=== PATIENT | female | born 1975 | race Caucasian/White ===

== ENCOUNTER → 2017-03-13 | Outpatient (CLI) | payer OTHER ==
[2017-03-13 07:19] LABS: BASOPHILS # (AUTO) 0.03 x10^3/uL (0-0.1); BASOPHILS % (AUTO) 1 % (0-1); EOSINOPHILS # (AUTO) 0.14 x10^3/uL (0-0.4); EOSINOPHILS % (AUTO) 2 % (1-7); LYMPHOCYTES # (AUTO) 1.99 x10^3/uL (1-3.4); LYMPHOCYTES % (AUTO) 32 % (22-44); MD NO; MEAN CORPUSCULAR HEMOGLOBIN 30.4 pg (27.0-34.8); MEAN CORPUSCULAR HGB CONC 34.1 g/dL (32.4-35.8); MEAN PLATELET VOLUME 7.4 fL (7.4-10.4); MONOCYTES # (AUTO) 0.51 x10^3/uL (0.2-0.8); MONOCYTES % (AUTO) 8 % (2-9); NEUTROPHILS # (AUTO) 3.62 x10^3/uL (1.8-6.8); NEUTROPHILS % (AUTO) 58 % (42-75); PLATELET COUNT 262 x10^3/uL (130-400); RED BLOOD COUNT 4.93 x10^6/uL (3.82-5.3); RED CELL DISTRIBUTION WIDTH 12.5 % (9.6-15.2)
[2017-03-13 07:29] LABS: ALBUMIN 3.5 g/dL (3.4-5.0); ANION GAP 8 mmol/L (5-15); CALCIUM 8.6 mg/dL (8.5-10.1); CHLORIDE 107 mmol/L (98-107)
[2017-03-13 07:38] LABS: ALANINE AMINOTRANSFERASE 27 U/L (12-78); ALKALINE PHOSPHATASE 56 U/L (45-117); BILIRUBIN,TOTAL 0.8 mg/dL (0.2-1.0); CHOLESTEROL, TOTAL 186 mg/dL (140-239); CREATININE 0.87 mg/dL (0.55-1.02); FREE T4 (FREE THYROXINE) 1.01 ng/dL (0.76-1.46); HDL CHOL % 25 % (28-40); HDL CHOLESTEROL (DIRECT) 47 mg/dL (40-60); LDL CHOLESTEROL,CALCULATED 111 mg/dL (54-169); LDL/HDL RATIO 2.4 (0.5-3.0); TOTAL PROTEIN 7.2 g/dL (6.4-8.2); TRIGLYCERIDES 139 mg/dL (50-200); VLDL CHOLESTEROL 28 mg/dL (0-25)
== END | disposition home or self-care (01) ==
LOC: LAB 07:04
PROVIDERS: ATTEND Family Medicine
DX: R10.9 Unspecified abdominal pain (principal); Z00.00 Encounter for general adult medical examination without abnormal findings
CPT/HCPCS: 36415; 80053; 80061; 82150; 82306; 83690; 84439; 84443; 85025

== ENCOUNTER → 2017-07-17 | Outpatient (CLI) | payer OTHER | END | disposition home or self-care (01) | LOC: CFH 11:37 | PROVIDERS: ATTEND Family Medicine | DX: Z12.31 Encounter for screening mammogram for malignant neoplasm of breast (principal); N64.89 Other specified disorders of breast | CPT/HCPCS: 77063; 77067 ==

== ENCOUNTER → 2017-07-31 | Outpatient (CLI) | payer OTHER | END | disposition home or self-care (01) | LOC: CFH 14:44 | PROVIDERS: ATTEND Family Medicine | DX: N63.21 Unspecified lump in the left breast, upper outer quadrant (principal); Z80.3 Family history of malignant neoplasm of breast | CPT/HCPCS: 77065 ==

== ENCOUNTER → 2017-08-15 | Outpatient (CLI) | payer OTHER ==
[~2017-08-15] MED LIST: LIDOCAINE 1%, 20ML ONE; LIDOCAINE 1%-EPI 1:100K, 50ML ONE; SODIUM BICARBONATE 4.2%, 5ML ONE
== END ==
LOC: CFH 14:58
PROVIDERS: ATTEND Family Medicine
DX: N63.21 Unspecified lump in the left breast, upper outer quadrant (principal)
CPT/HCPCS: 19083; 77065; 88305; J3490

== ENCOUNTER 2017-08-22 01:20 | Emergency (ER) | payer OTHER ==
[~2017-08-22] VITALS: Ht 170.2 cm; Wt 115.0 kg
[2017-08-22] MEDS ORDERED: ALBUTEROL/IPRATROPIUM 2.5MG/0.5MG, 3 ML NPPB PRN (02:00)
[2017-08-22 02:16] LABS: BASOPHILS % (AUTO) 1 % (0-1); EOSINOPHILS # (AUTO) 0.27 x10^3/uL (0-0.4); EOSINOPHILS % (AUTO) 3 % (1-7); LYMPHOCYTES # (AUTO) 2.18 x10^3/uL (1-3.4); LYMPHOCYTES % (AUTO) 22 % (22-44); MD NO; MEAN CORPUSCULAR HEMOGLOBIN 30.6 pg (27.0-34.8); MEAN CORPUSCULAR HGB CONC 34.2 g/dL (32.4-35.8); MEAN CORPUSCULAR VOLUME 89.5 fL (80-100); MEAN PLATELET VOLUME 8.1 fL (7.4-10.4); MONOCYTES # (AUTO) 0.69 x10^3/uL (0.2-0.8); MONOCYTES % (AUTO) 7 % (2-9); NEUTROPHILS # (AUTO) 6.85 x10^3/uL (1.8-6.8); NEUTROPHILS % (AUTO) 68 % (42-75); PLATELET COUNT 235 x10^3/uL (130-400); RED CELL DISTRIBUTION WIDTH 12.6 % (9.6-15.2)
[2017-08-22 02:18] LABS: ALBUMIN 3.8 g/dL (3.4-5.0); ANION GAP 7 mmol/L (5-15); CHLORIDE 108 mmol/L (98-107); CREATININE 0.82 mg/dL (0.55-1.02)
[2017-08-22 02:21] LABS: TROPONIN I < 0.015 ng/mL (0.000-0.045)
[2017-08-22] MEDS ORDERED: MAALOX/HYOSCYAMINE/LIDOCAINE 45 ML BTL PO ONE (02:30)
[2017-08-22] MEDS ORDERED: MAALOX/HYOSCYAMINE/LIDOCAINE 45 ML BTL ONE (02:57)
[2017-08-22 03:23] LABS: ALANINE AMINOTRANSFERASE 22 U/L (12-78); ALBUMIN 3.6 g/dL (3.4-5.0); ALKALINE PHOSPHATASE 57 U/L (45-117); BILIRUBIN,TOTAL 0.3 mg/dL (0.2-1.0); TOTAL PROTEIN 7.4 g/dL (6.4-8.2)
[2017-08-22 03:26] LABS: BILIRUBIN, DIRECT < 0.1 mg/dL (0.1-0.2); BILIRUBIN,INDIRECT 0.2 mg/dL (0.0-2.0)
[2017-08-22 04:12] VITALS: BP 130/71
[2017-08-23] MEDS ORDERED: FEXO1TAB29 PO (14:11)
[2017-08-23] MEDS ORDERED: IBUP200C8 PO (14:11)
[2017-08-23] MEDS ORDERED: CYCL5TAB PO (14:11)
[2017-08-23] MEDS ORDERED: FLUT9.9S NAS (14:11)
== END 2017-08-22 04:15 | disposition home or self-care (01) ==
LOC: ED 04:12
DX: R07.89 Other chest pain (principal); J45.909 Unspecified asthma, uncomplicated
CPT/HCPCS: 36415; 71046; 80048; 80076; 82040; 83690; 83880; 84484; 85025; 93005; 94640; 99285; J7620

== ENCOUNTER 2017-08-23 11:31 | Observation (INO) | payer OTHER ==
[~2017-08-23] VITALS: Ht 170.2 cm; Wt 116.5 kg
[2017-08-23] MEDS ORDERED: NITROGLYCERIN OINT 2%, 1GM TP ONE ×2 (12:25→12:30)
[2017-08-23] MEDS ORDERED: HYDROcodone/APAP 5/325 TABLET ONE (12:25)
[2017-08-23] MEDS ORDERED: HYDROcodone/APAP 5/325 TABLET PO ONE (12:30)
[2017-08-23 12:41] LABS: ALBUMIN 3.8 g/dL (3.4-5.0); ANION GAP 7 mmol/L (5-15); CALCIUM 8.9 mg/dL (8.5-10.1); CHLORIDE 108 mmol/L (98-107); CREATININE 0.78 mg/dL (0.55-1.02)
[2017-08-23 12:45] LABS: TROPONIN I < 0.015 ng/mL (0.000-0.045)
[2017-08-23 12:52] LABS: BASOPHILS # (AUTO) 0.02 x10^3/uL (0-0.1); BASOPHILS % (AUTO) 0 % (0-1); EOSINOPHILS # (AUTO) 0.13 x10^3/uL (0-0.4); EOSINOPHILS % (AUTO) 2 % (1-7); LYMPHOCYTES # (AUTO) 1.21 x10^3/uL (1-3.4); LYMPHOCYTES % (AUTO) 18 % (22-44); MD NO; MEAN CORPUSCULAR HEMOGLOBIN 30.5 pg (27.0-34.8); MEAN CORPUSCULAR HGB CONC 34.3 g/dL (32.4-35.8); MEAN PLATELET VOLUME 7.9 fL (7.4-10.4); MONOCYTES # (AUTO) 0.49 x10^3/uL (0.2-0.8); MONOCYTES % (AUTO) 7 % (2-9); NEUTROPHILS # (AUTO) 4.86 x10^3/uL (1.8-6.8); NEUTROPHILS % (AUTO) 72 % (42-75); PLATELET COUNT 223 x10^3/uL (130-400); RED BLOOD COUNT 4.57 x10^6/uL (3.82-5.3); RED CELL DISTRIBUTION WIDTH 12.5 % (9.6-15.2)
[2017-08-23] MEDS ORDERED: OMNIPAQUE 350 MG/ML, 100ML BOTTLE ONE (13:37)
[2017-08-23] MEDS ORDERED: CYCL5TAB PO (14:11)
[2017-08-23] MEDS ORDERED: FLUT9.9S NAS (14:11)
[2017-08-23] MEDS ORDERED: FEXO1TAB29 PO (14:11)
[2017-08-23] MEDS ORDERED: IBUP200C8 PO (14:11)
[2017-08-23] MEDS ORDERED: ONDANSETRON ODT 4 MG PO PRN (15:00)
[2017-08-23] MEDS ORDERED: ONDANSETRON 2MG/ML, 2ML IVPush PRN (15:00)
[2017-08-23] MEDS ORDERED: LABETALOL 5MG/ML, 20ML IVPush PRN (15:00)
[2017-08-23] MEDS ORDERED: LORATADINE/PSE 5/120MG TAB.ER.12H PO PRN (15:00)
[2017-08-23] MEDS ORDERED: ENALAPRILAT 1.25 MG/ML, 2ML IVPush PRN (15:00)
[2017-08-23 15:44] VITALS: BP 122/83
[2017-08-23] MEDS: ACETAMINOPHEN 325 MG TABLET PO PRN (18:10)
[2017-08-23 18:23] LABS: TROPONIN I < 0.015 ng/mL (0.000-0.045)
[2017-08-23 19:22] VITALS: BP 129/84
[2017-08-23 19:58] VITALS: BP 122/68
[2017-08-23] MEDS ORDERED: NITROGLYCERIN 0.4 MG BOTTLE (25 TABS) SL PRN (20:00)
[2017-08-23] MEDS ORDERED: NITROGLYCERIN 0.4 MG/SPRAY SL PRN (20:00)
[2017-08-24 00:46] LABS: TROPONIN I < 0.015 ng/mL (0.000-0.045)
[2017-08-24 01:38] VITALS: BP 127/83
[2017-08-24] MEDS: ACETAMINOPHEN 325 MG TABLET PO PRN (05:16)
[2017-08-24 05:23] LABS: BASOPHILS # (AUTO) 0.03 x10^3/uL (0-0.1); BASOPHILS % (AUTO) 0 % (0-1); EOSINOPHILS # (AUTO) 0.16 x10^3/uL (0-0.4); EOSINOPHILS % (AUTO) 3 % (1-7); LYMPHOCYTES # (AUTO) 1.87 x10^3/uL (1-3.4); LYMPHOCYTES % (AUTO) 28 % (22-44); MD NO; MEAN CORPUSCULAR HEMOGLOBIN 30.6 pg (27.0-34.8); MEAN CORPUSCULAR HGB CONC 34.4 g/dL (32.4-35.8); MEAN CORPUSCULAR VOLUME 89.1 fL (80-100); MONOCYTES # (AUTO) 0.67 x10^3/uL (0.2-0.8); MONOCYTES % (AUTO) 10 % (2-9); NEUTROPHILS # (AUTO) 3.85 x10^3/uL (1.8-6.8); NEUTROPHILS % (AUTO) 59 % (42-75); PLATELET COUNT 210 x10^3/uL (130-400); RED CELL DISTRIBUTION WIDTH 12.7 % (9.6-15.2)
[2017-08-24 05:24] LABS: ANION GAP 7 mmol/L (5-15); CALCIUM 8.5 mg/dL (8.5-10.1); CHLORIDE 107 mmol/L (98-107)
[2017-08-24 05:35] LABS: CHOL/HDL RATIO 3.9; CHOLESTEROL, TOTAL 183 mg/dL (140-239); CREATININE 0.77 mg/dL (0.55-1.02); HDL CHOL % 26 % (28-40); HDL CHOLESTEROL (DIRECT) 47 mg/dL (40-60); LDL CHOLESTEROL,CALCULATED 117 mg/dL (54-169); LDL/HDL RATIO 2.5 (0.5-3.0); TRIGLYCERIDES 94 mg/dL (50-200); VLDL CHOLESTEROL 19 mg/dL (0-25)
[2017-08-24 05:36] LABS: THYROID STIMULATING HORMONE 0.982 mIU/L (0.358-3.740)
[2017-08-24 07:42] VITALS: BP 116/75
[2017-08-24] MEDS ORDERED: SENNA/DOCUSATE TABLET PO SCH (09:00)
[2017-08-24] MEDS ORDERED: FLUTICASONE NASAL SPRAY 16GM NAS SCH (09:00)
[2017-08-24] MEDS ORDERED: OMEP-110 PO (12:01)
== END 2017-08-24 14:37 | disposition home or self-care (01) ==
LOC: ED 12:01 → INTOOBSV 14:04 → EDIP 14:04 → 5SO 15:43 → UNDODISIN 08-24 14:37
PROVIDERS: ADMIT Hospitalist; ATTEND Hospitalist
DX: R07.9 Chest pain, unspecified (principal); G89.29 Other chronic pain; M54.5 Low back pain; J44.9 Chronic obstructive pulmonary disease, unspecified; Z82.3 Family history of stroke; Z82.49 Family history of ischemic heart disease and other diseases of the circulatory system; Z82.5 Family history of asthma and other chronic lower respiratory diseases; Z86.72 Personal history of thrombophlebitis; Z87.891 Personal history of nicotine dependence; Z90.710 Acquired absence of both cervix and uterus
CPT/HCPCS: 36415; 71275; 78452; 80048; 80061; 82040; 84443; 84484; 85025; 85379; 93005; 93017; 99285; A9502; C9898; G0378; Q9967

== ENCOUNTER 2017-10-02 10:45 | Day surgery (SDC) | payer OTHER ==
[~2017-10-02] VITALS: Ht 170.2 cm; Wt 113.0 kg
[~2017-10-02 10:45] MED LIST changes: +ACET325T14 PO; +ALBU8.5H8 INH; +CYCL5TAB PO; +FEXO1TAB29 PO; +FLUT9.9S NAS; +IBUP200C8 PO; -LIDOCAINE 1%, 20ML ONE; -LIDOCAINE 1%-EPI 1:100K, 50ML ONE; +OMEP-110 PO; +OMEP20TA62 PO; -SODIUM BICARBONATE 4.2%, 5ML ONE
[2017-10-02] MEDS ORDERED: LACTATED RINGERS 1,000 ML IV SCH ×2 (13:14→18:30)
[2017-10-02 13:21] VITALS: BP 138/92
[2017-10-02] MEDS ORDERED: BUPIVACAINE/PF 0.5% ONE (13:28)
[2017-10-02] MEDS ORDERED: EPINEPHRINE 1 MG/ML, 1ML ONE (13:28)
[2017-10-02] MEDS ORDERED: SCOPOLAMINE PATCH, 1.5MG PATCH.TD72 TD ONE (13:30)
[2017-10-02] MEDS ORDERED: ACETAMINOPHEN 500 MG TABLET PO ONE (13:30)
[2017-10-02] MEDS ORDERED: GABAPENTIN 300 MG CAPSULE PO ONE (13:30)
[2017-10-02] MEDS ORDERED: ONDANSETRON 2MG/ML, 2ML IVPush ONE (13:30)
[2017-10-02] MEDS ORDERED: MIDAZOLAM 1 MG/ML, 2ML ONE (16:46)
[2017-10-02] MEDS ORDERED: FENTANYL PF 250 MCG/5ML ONE (16:46)
[2017-10-02] MEDS ORDERED: PROPOFOL 10 MG/ML, 20ML ONE (16:47)
[2017-10-02] MEDS ORDERED: ONDANSETRON 2MG/ML, 2ML ONE (16:48)
[2017-10-02] MEDS ORDERED: LIDOCAINE GEL 2%, 5ML ONE (16:48)
[2017-10-02] MEDS ORDERED: DEXAMETHASONE 4 MG/ML, 1ML ONE (16:48)
[2017-10-02] MEDS ORDERED: CEFAZOLIN 1,000 MG ONE (16:48)
[2017-10-02] MEDS ORDERED: LORazepam 2 MG/ML, 1ML IVPush PRN (17:30)
[2017-10-02] MEDS ORDERED: OXYcodone 5 MG/5 ML ORAL.SOL UDC PO PRN (17:30)
[2017-10-02] MEDS ORDERED: FENTANYL PF 100 MCG/2ML IV PRN (17:30)
[2017-10-02] MEDS ORDERED: ONDANSETRON 2MG/ML, 2ML IV PRN (17:30)
[2017-10-02] MEDS ORDERED: MEPERIDINE/PF 25MG/0.5ML IVPush PRN (17:30)
[2017-10-02] MEDS ORDERED: ONDANSETRON ODT 8 MG PO PRN (17:30)
[2017-10-02] MEDS ORDERED: ALBUTEROL SULFATE 2.5 MG/3 ML NPPB PRN (17:30)
[2017-10-02] MEDS ORDERED: PROMETHAZINE 25 MG/ML, 1ML IV PRN (17:30)
[2017-10-02] MEDS ORDERED: hydrALAzine 20 MG/ML, 1ML IV PRN (17:30)
[2017-10-02] MEDS ORDERED: MIDAZOLAM 1 MG/ML, 2ML IV PRN (17:30)
[2017-10-02] MEDS ORDERED: HYDROmorphone 1 MG/ML, 1ML IV PRN (17:30)
[2017-10-02] MEDS ORDERED: PROMETHAZINE 12.5 MG SUPP PR PRN (17:30)
[2017-10-02] MEDS ORDERED: LABETALOL 5MG/ML, 20ML IV PRN (17:30)
[2017-10-02] MEDS ORDERED: OXYcodone 5 MG/5 ML ORAL.SOL UDC ONE (18:08)
[2017-10-02] MEDS ORDERED: ONDANSETRON 2MG/ML, 2ML IVPush PRN (18:30)
[2017-10-02] MEDS ORDERED: MORPHINE SULFATE 4 MG/ML, 1ML IVPush PRN (18:30)
== END 2017-10-02 19:45 | disposition home or self-care (01) ==
LOC: SDC 10:45 → EDSTATUS 15:30 → 4NOR 18:22 → OUT 19:45
PROVIDERS: ATTEND Surgery
DX: N60.22 Fibroadenosis of left breast (principal); F41.9 Anxiety disorder, unspecified; K21.9 Gastro-esophageal reflux disease without esophagitis; E66.9 Obesity, unspecified; J44.9 Chronic obstructive pulmonary disease, unspecified; Z79.899 Other long term (current) drug therapy; Z88.1 Allergy status to other antibiotic agents; Z98.890 Other specified postprocedural states; Z88.8 Allergy status to other drugs, medicaments and biological substances; Z87.891 Personal history of nicotine dependence; Z72.89 Other problems related to lifestyle; Z90.710 Acquired absence of both cervix and uterus; Z68.41 Body mass index [BMI] 40.0-44.9, adult
CPT/HCPCS: 19281; 19301; 88305; 88307; J0171; J0690; J1100; J2250; J2405; J2704; J3010; J3490; J7120

== ENCOUNTER → 2018-04-13 | Outpatient (CLI) | payer OTHER | END | disposition home or self-care (01) | LOC: CFH 10:58 | PROVIDERS: ATTEND Surgery | DX: Z08 Encounter for follow-up examination after completed treatment for malignant neoplasm (principal); Z85.3 Personal history of malignant neoplasm of breast | CPT/HCPCS: 77065; G0279 ==

== ENCOUNTER 2018-09-30 08:02 | Outpatient (CLI) | payer OTHER | END 2018-09-30 23:59 | disposition home or self-care (01) | LOC: LAB 08:02 | PROVIDERS: ATTEND Physician Assistant Surgical | DX: M76.31 Iliotibial band syndrome, right leg (principal); M17.11 Unilateral primary osteoarthritis, right knee; M25.561 Pain in right knee | CPT/HCPCS: 36415; 80053; 84550; 85025; 85651; 86140 ==

== ENCOUNTER 2018-10-05 13:00 | Outpatient (CLI) | payer OTHER | END 2018-10-05 23:59 | disposition home or self-care (01) | LOC: CFH 13:00 | PROVIDERS: ATTEND Physician Assistant Surgical | DX: S83.241A Other tear of medial meniscus, current injury, right knee, initial encounter (principal); S83.011A Lateral subluxation of right patella, initial encounter; M25.461 Effusion, right knee; M67.461 Ganglion, right knee; M17.11 Unilateral primary osteoarthritis, right knee; R60.0 Localized edema; X58.XXXA Exposure to other specified factors, initial encounter; Y93.89 Activity, other specified; Y92.89 Other specified places as the place of occurrence of the external cause; Y99.8 Other external cause status ==

== ENCOUNTER 2018-10-07 11:23 | Outpatient (CLI) | payer OTHER | END 2018-10-07 23:59 | disposition home or self-care (01) | LOC: LAB 11:23 | PROVIDERS: ATTEND Orthopaedic Surgery Adult Reconstructive Orthopaedic Surgery | DX: M17.11 Unilateral primary osteoarthritis, right knee (principal) | CPT/HCPCS: 36415; 86038; 86200; 86430 ==

== ENCOUNTER 2019-07-26 15:23 | Outpatient (CLI) | payer OTHER | END 2019-07-26 23:59 | disposition home or self-care (01) | LOC: CFH 15:23 | PROVIDERS: ATTEND Orthopaedic Surgery Adult Reconstructive Orthopaedic Surgery | DX: S83.242A Other tear of medial meniscus, current injury, left knee, initial encounter (principal); M25.462 Effusion, left knee; M25.762 Osteophyte, left knee; M94.28 Chondromalacia, other site; X58.XXXA Exposure to other specified factors, initial encounter; Y93.89 Activity, other specified; Y92.89 Other specified places as the place of occurrence of the external cause; Y99.8 Other external cause status ==

== ENCOUNTER → 2019-08-06 | Outpatient (CLI) | payer OTHER ==
[2019-08-06 08:31] LABS: BASOPHILS # (AUTO) 0.02 x10^3/uL (0-0.1); BASOPHILS % (AUTO) 0 % (0-1); EOSINOPHILS # (AUTO) 0.23 x10^3/uL (0-0.4); EOSINOPHILS % (AUTO) 4 % (1-7); LYMPHOCYTES # (AUTO) 1.61 x10^3/uL (1-3.4); LYMPHOCYTES % (AUTO) 26 % (22-44); MD NO; MEAN CORPUSCULAR HEMOGLOBIN 30.7 pg (27.0-34.8); MEAN CORPUSCULAR VOLUME 90.3 fL (80-100); MEAN PLATELET VOLUME 7.6 fL (7.4-10.4); MONOCYTES # (AUTO) 0.65 x10^3/uL (0.2-0.8); MONOCYTES % (AUTO) 11 % (2-9); NEUTROPHILS # (AUTO) 3.72 x10^3/uL (1.8-6.8); NEUTROPHILS % (AUTO) 60 % (42-75); PLATELET COUNT 230 x10^3/uL (130-400); RED BLOOD COUNT 4.72 x10^6/uL (3.82-5.3); RED CELL DISTRIBUTION WIDTH 12.5 % (9.6-15.2)
[2019-08-06 08:33] LABS: ALANINE AMINOTRANSFERASE 24 U/L (12-78); ALBUMIN 3.6 g/dL (3.4-5.0); ANION GAP 8 mmol/L (5-15); CALCIUM 8.6 mg/dL (8.5-10.1); CHLORIDE 110 mmol/L (98-107); CHOLESTEROL, TOTAL 201 mg/dL (140-239); CREATININE 0.79 mg/dL (0.55-1.02)
[2019-08-06 08:35] LABS: ALKALINE PHOSPHATASE 56 U/L (45-117); BILIRUBIN,TOTAL 0.4 mg/dL (0.2-1.0); HDL CHOL % 20 % (28-40); HDL CHOLESTEROL (DIRECT) 40 mg/dL (40-60); LDL CHOLESTEROL,CALCULATED 133 mg/dL (54-169); LDL/HDL RATIO 3.3 (0.5-3.0); TOTAL PROTEIN 7.1 g/dL (6.4-8.2); TRIGLYCERIDES 138 mg/dL (50-200); VLDL CHOLESTEROL 28 mg/dL (0-25)
== END | disposition home or self-care (01) ==
LOC: LAB 08:10
PROVIDERS: ATTEND Family Medicine
DX: Z00.00 Encounter for general adult medical examination without abnormal findings (principal)
CPT/HCPCS: 36415; 80053; 80061; 85025

== ENCOUNTER → 2019-12-03 | Outpatient (CLI) | payer OTHER ==
[~2019-12-03] MED LIST changes: +ARNUITY INH; +CELEBREX PO; +LORA10TA75 PO
[2019-12-03 16:04] LABS: BASOPHILS % (AUTO) 1 % (0-1); EOSINOPHILS % (AUTO) 3 % (1-7); LYMPHOCYTES % (AUTO) 25 % (22-44); MEAN CORPUSCULAR HEMOGLOBIN 30.2 pg (27.0-34.8); MEAN CORPUSCULAR HGB CONC 34.2 g/dL (32.4-35.8); MEAN PLATELET VOLUME 7.6 fL (7.4-10.4); MONOCYTES % (AUTO) 7 % (2-9); NEUTROPHILS % (AUTO) 64 % (42-75); PLATELET COUNT 278 x10^3/uL (130-400); RED BLOOD COUNT 4.87 x10^6/uL (3.82-5.3); RED CELL DISTRIBUTION WIDTH 12.5 % (9.6-15.2)
[2019-12-03 16:09] LABS: MD NO
[2019-12-03 16:13] LABS: ANION GAP 4 mmol/L (5-15); CHLORIDE 106 mmol/L (98-107); CREATININE 0.83 mg/dL (0.55-1.02)
== END | disposition home or self-care (01) ==
LOC: STAR 15:05
PROVIDERS: ATTEND Orthopaedic Surgery Adult Reconstructive Orthopaedic Surgery
DX: Z01.812 Encounter for preprocedural laboratory examination (principal); Z20.828 Contact with and (suspected) exposure to other viral communicable diseases; M17.12 Unilateral primary osteoarthritis, left knee
CPT/HCPCS: 36415; 80048; 85025; 87081; 87147; 87635

== ENCOUNTER 2019-12-07 05:40 | Observation (INO) | payer OTHER ==
[~2019-12-07] VITALS: Ht 170.2 cm; Wt 127.2 kg
[2019-12-07] MEDS ORDERED: LIDOCAINE-MPF 1%, 2ML INFIL STA (06:11)
[2019-12-07] MEDS ORDERED: LACTATED RINGERS 1,000 ML IV SCH (06:11)
[2019-12-07] MEDS ORDERED: CHLORHEXIDINE 15 ML UDC MM STA (06:11)
[2019-12-07] MEDS ORDERED: PROPOFOL 10 MG/ML, 20ML ONE (06:17)
[2019-12-07] MEDS ORDERED: MIDAZOLAM 1 MG/ML, 2ML ONE (06:17)
[2019-12-07] MEDS ORDERED: ROCURONIUM 10MG/ML,5ML ONE (06:17)
[2019-12-07] MEDS ORDERED: DEXAMETHASONE 4 MG/ML, 1ML ONE (06:17)
[2019-12-07] MEDS ORDERED: SUCCINYLCHOLINE 20 MG/ML, 10ML ONE (06:17)
[2019-12-07] MEDS ORDERED: ONDANSETRON 2MG/ML, 2ML ONE (06:17)
[2019-12-07] MEDS ORDERED: CEFAZOLIN 1,000 MG ONE (06:17)
[2019-12-07] MEDS ORDERED: NEOSTIGMINE 1 MG/ML, 10ML ONE (06:17)
[2019-12-07] MEDS ORDERED: FENTANYL PF 100 MCG/2ML ONE ×3 (06:17→08:29)
[2019-12-07] MEDS ORDERED: GLYCOPYRROLATE 0.2MG/1ML, 5ML ONE (06:17)
[2019-12-07] MEDS ORDERED: BUPIVACAINE/PF 0.5% ONE (06:19)
[2019-12-07] MEDS ORDERED: NEOSPORIN OINT. PKT 1 PACKET ONE (06:20)
[2019-12-07] MEDS ORDERED: TRANEXAMIC ACID 100 MG/ML, 10ML ONE ×2 (06:20)
[2019-12-07] MEDS ORDERED: EPINEPHRINE 1 MG/ML, 1ML ONE (06:20)
[2019-12-07] MEDS ORDERED: SCOPOLAMINE 1MG PATCH TD ONE (06:29)
[2019-12-07] MEDS ORDERED: ACETAMINOPHEN 500 MG TABLET PO STA (06:35)
[2019-12-07] MEDS ORDERED: VANCOMYCIN 1,000 MG ONE (07:11)
[2019-12-07] MEDS ORDERED: HYDROmorphone 1 MG/ML, 1ML INJ IVPush PRN (07:30)
[2019-12-07] MEDS ORDERED: OXYcodone 5 MG/5 ML ORAL.SOL UDC PO PRN (07:30)
[2019-12-07] MEDS ORDERED: PROMETHAZINE 25 MG/ML, 1ML IVPush PRN (07:30)
[2019-12-07] MEDS ORDERED: KETOROLAC 30 MG/1 ML IVPush PRN (07:30)
[2019-12-07] MEDS ORDERED: MEPERIDINE/PF 25MG/ML,1ML ONE ×2 (08:15→08:52)
[2019-12-07] MEDS: MEPERIDINE/PF 25MG/0.5ML IVPush PRN ×2 (08:16→08:55)
[2019-12-07] MEDS ORDERED: OXYcodone 5 MG/5 ML ORAL.SOL UDC ONE (08:30)
[2019-12-07] MEDS: FENTANYL PF 100 MCG/2ML IV PRN ×2 (08:34→09:16)
[2019-12-07] MEDS ORDERED: METHOCARBAMOL 1,000 MG in DEXTROSE 5% 100 ML IV STA (08:51)
[2019-12-07 10:15] VITALS: BP 147/95
[2019-12-07] MEDS ORDERED: MORPHINE SULFATE 4 MG/ML, 1ML ONE (11:41)
[2019-12-07] MEDS ORDERED: ONDANSETRON 2MG/ML, 2ML IVPush PRN (12:00)
[2019-12-07] MEDS ORDERED: ONDANSETRON ODT 4 MG PO PRN (12:00)
[2019-12-07] MEDS ORDERED: MORPHINE SULFATE 4 MG/ML, 1ML IVPush PRN (12:00)
[2019-12-07] MEDS: OXYcodone/APAP 10/325MG TABLET PO PRN ×2 (12:57→17:31)
[2019-12-07 13:10] VITALS: BP 142/90
[2019-12-07 13:16] VITALS: BP 142/85
[2019-12-07] MEDS: CEFAZOLIN PMX 2GM/50ML 50 ML IVPB SCH ×2 (14:59→23:01)
[2019-12-07 17:25] VITALS: BP 131/88
[2019-12-07 19:19] VITALS: BP 113/66
[2019-12-07] MEDS: OXYcodone/APAP 5/325MG TABLET PO PRN (22:22)
[2019-12-07 23:54] VITALS: BP 134/81
[2019-12-08] MEDS: OXYcodone/APAP 10/325MG TABLET PO PRN (02:36)
[2019-12-08 03:34] VITALS: BP 132/67
[2019-12-08] MEDS ORDERED: ASPIRIN 81 MG TABLET EC PO SCH (06:00)
[2019-12-08] MEDS: OXYcodone/APAP 5/325MG TABLET PO PRN (06:46)
[2019-12-08 07:50] VITALS: BP 110/79
== END 2019-12-08 10:40 | disposition home or self-care (01) ==
LOC: OUT 05:40 → 4NE 09:46 → OUT 23:29 → 4NE 23:30 → INTOOBSV 23:30 → DCLOUNGE 12-08 10:35
PROVIDERS: ADMIT Orthopaedic Surgery Adult Reconstructive Orthopaedic Surgery; ATTEND Orthopaedic Surgery Adult Reconstructive Orthopaedic Surgery
DX: M17.12 Unilateral primary osteoarthritis, left knee (principal); J45.909 Unspecified asthma, uncomplicated; E66.01 Morbid (severe) obesity due to excess calories; Z87.891 Personal history of nicotine dependence; Z79.899 Other long term (current) drug therapy
CPT/HCPCS: 27447; 73560; 96365; 96366; 96375; 97110; 97161; 97530; C1713; C1776; G0378; J0171; J0330; J0690; J1100; J2175; J2250; J2270; J2405; J2704; J2710; J2800; J3010; J3370; J7120; S0020

== ENCOUNTER → 2020-01-13 | Outpatient (CLI) | payer OTHER | END | disposition home or self-care (01) | LOC: CFH 15:00 | PROVIDERS: ATTEND Family Medicine | DX: Z12.31 Encounter for screening mammogram for malignant neoplasm of breast (principal) | CPT/HCPCS: 77063; 77067 ==

== ENCOUNTER 2020-09-11 17:28 | Emergency (ER) | payer OTHER ==
[~2020-09-11] VITALS: Ht 170.2 cm; Wt 122.4 kg
[2020-09-11 17:34] VITALS: BP 148/87
== END 2020-09-11 18:37 | disposition home or self-care (01) ==
LOC: ED 18:00
DX: A23.9 Brucellosis, unspecified (principal); J45.909 Unspecified asthma, uncomplicated
CPT/HCPCS: 36415; 86622; 99283

== ENCOUNTER → 2020-11-15 | Outpatient (CLI) | payer OTHER ==
[2020-11-15 12:54] LABS: HCT (SEDRATE) 41.1 % (34.6-47.8)
== END | disposition home or self-care (01) ==
LOC: LAB 12:42
PROVIDERS: ATTEND Nurse Practitioner
DX: M79.671 Pain in right foot (principal)
CPT/HCPCS: 36415; 85651; 86140; 86430

== ENCOUNTER → 2020-11-22 | Outpatient (CLI) | payer OTHER | END | disposition home or self-care (01) | LOC: RAD 07:34 | PROVIDERS: ATTEND Nurse Practitioner | DX: M19.071 Primary osteoarthritis, right ankle and foot (principal); G89.29 Other chronic pain; M67.471 Ganglion, right ankle and foot; M72.2 Plantar fascial fibromatosis | CPT/HCPCS: 73723; A9575 ==